=== PATIENT | male | born 1985 | race Hispanic/Latino ===

== ENCOUNTER 2022-11-29 18:33 | Emergency (ER) | payer SELFPAY ==
[~2022-11-29] VITALS: Ht 165.1 cm; Wt 77.6 kg
[2022-11-29 18:41] VITALS: BP 124/87
[2022-11-29 19:00] VITALS: BP 108/70
[2022-11-29] MEDS ORDERED: KEFLEX500 MG PO (19:24)
[2022-11-29 19:31] VITALS: BP 121/74
[2022-11-29 19:35] VITALS: BP 121/74
== END 2022-11-29 19:38 | disposition home or self-care (01) | DRG 603 ==
LOC: ED 18:33
DX: L03.011 Cellulitis of right finger (principal)